=== PATIENT | female | born 1995 | race African-American/Black ===

== ENCOUNTER 2021-09-14 17:14 | Emergency (ER) | payer OTHER, SELFPAY ==
[2021-09-14] MEDS ORDERED: cefTRIAXone\\ROCEPHIN 500 MG VIAL ONE (18:56)
[2021-09-14] MEDS ORDERED: Sterile Water 10 ML ONE (19:00)
== END 2021-09-14 19:14 | disposition home or self-care (01) ==
LOC: CSHERS 17:14
DX: A54.9 Gonococcal infection, unspecified (principal)
CPT/HCPCS: 96372; 99283; J0696